=== PATIENT | male | born 1955 | race Caucasian/White ===

== ENCOUNTER → 2022-05-02 | Outpatient (CLI) | payer MEDICARE ==
--- NOTE | 2022-05-02 15:48 | US ---
EXAMINATION TYPE: US carotid duplex BILAT DATE OF EXAM: 05/02/2022 COMPARISON: NONE CLINICAL HISTORY: I65.23 OCCLUSION AND STENOSIS. No symptoms, assess for stenosis, no h/o stroke TECHNIQUE: Carotid duplex ultrasound examination. Indirect Doppler criteria was utilized. FINDINGS: EXAM MEASUREMENTS: RIGHT: Peak Systolic Velocity (PSV) cm/sec ----- Right CCA: 121 ----- Right ICA: 86.8 ----- Right ECA: 127 ICA/CCA ratio: 0.7 RIGHT: End Diastole cm/sec ----- Right CCA: 21.5 ----- Right ICA: 24.9 ----- Right ECA: 13.5 LEFT: Peak Systolic Velocity (PSV) cm/sec ----- Left CCA: 84.3 ----- Left ICA: 80.6 ----- Left ECA: 163 ICA/CCA ratio: 0.9 LEFT: End Diastole cm/sec ----- Left CCA: 13.9 ----- Left ICA: 21.0 ----- Left ECA: 19.5 VERTEBRALS (direction of flow): Right Vertebral: Antegrade Left Vertebral: Antegrade Rhythm: Normal FORENSIC BALLISTICS EXPERT NOTES: Mild heterogeneous plaque at proximal left ICA, no significant stenosis IMPRESSION: Mild atherosclerotic plaque within the left proximal ICA. No evidence of hemodynamically significant stenosis within both internal carotid arteries. Criteria for Assigning % of Stenosis / Diameter reduction (Estimation based on the indirect measurements of the internal carotid artery velocities (ICA PSV). 1. Normal (no stenosis)=ICA PSV < 125 cm/s: ratio < 2.0: ICA EDV<40 cm/s. 2. Less than 50% stenosis=ICA PSV < 125 cm/s: ratio < 2.0: ICA EDV<40 cm/s. 3. 50 to 69% stenosis=ICA PSV of 125 to 230 cm/s: ration 2.0 ? 4.0: ICA EDV 40-100 cm/s. 4. Greater than 70% stenosis to near occlusion= ICA PSV > 230 cm/s: ratio > 4.0: ICA EDV > 100 cm/s. 5. Near occlusion= ICA PSV velocities may be low or undetectable: variable ratio and ICA EDV. 6. Total occlusion=unable to detect flow.
== END | disposition home or self-care (01) ==
LOC: RADUSWWP 14:45
PROVIDERS: ATTEND Internal Medicine
DX: Z13.6 Encounter for screening for cardiovascular disorders (principal); I65.22 Occlusion and stenosis of left carotid artery
CPT/HCPCS: 93880

== ENCOUNTER → 2023-08-15 | Outpatient (CLI) | payer MEDICARE ==
[~2023-08-15] MED LIST: REGADENOSON 0.4 MG/5 ML SYRINGE IV ONE
--- NOTE | 2023-08-15 10:26 | CA ---
Lexiscan Nuclear Stress Test Report Name: Anderson Boles Exam Date: 08/15/2023 09:33 Exam Location: [facility] Ht (in): 70 Wt (lb): 168 BSA: 1.94 Ordering Phys: Autumn Avila MD Referring Phys: Autumn Avila MD Technologist: BRAYDEN BELLA Age: 68 Gender: M : 1955 Procedure CPT: Indications: I25.10 arteriosclerosis ICD-10 Codes: Patient History: ELEVATED CHOLESTEROL LEVELS, ASTHMA Medications: ATORVASTATIN,,,,,, MARIN 81 mg,,,,, Meds past 24 hrs: Pretest Chest Pain: STRESS TEST Lexiscan Protocol Exercise Duration (min:sec): 01:[address] Depressions (mm): Angina Score: Belcher Score: Resting HR (bpm): 61 Peak HR (bpm): 92 Resting BP (mmHg): 149 / 72 Peak BP (mmHg): 149 / 72 MPHR: 150 Target HR: 128 % MPHR: 61 METS: 1.0 Total Dose: Peak Dose: Atropine: Double Product: 49660 BP Response: Stress Termination: INFUSION COMPLETE Stress Symptoms: NO SYMPTOMS Stress Summary: ECG ANALYSIS Resting ECG: Normal sinus rhythm, normal axis Stress ECG: No significant ST-T wave changes that are diagnostic for ischemia by ST segment analysis. There were no sustained arrhythmias ectopic beats during the stress test CONCLUSIONS Normal ECG response to Lexiscan infusion. Nonischemic Normal hemodynamic response to Lexiscan infusion Normal clinical response to Lexiscan infusion Please refer to the nuclear portion of the stress test for the complete interpretation of this study Dr Damián Lai (Electronically Signed) Final Date: 15 August 2023 10:26
--- NOTE | 2023-08-15 12:28 | NM ---
EXAMINATION TYPE: NM stress lexiscan cardiolite DATE OF EXAM: 08/15/2023 COMPARISON: NONE CLINICAL INDICATION: Male, 68 years old with history of I25.10 coronary arteriosclerosis; TECHNIQUE: After the intravenous administration of 9.9 mCi Tc 99m Sestamibi - Cardiolite resting SPE CT images acquired 45 minutes post injection. The patient received 0.4mg Lexiscan, 25.4 mCi Tc 99m Sestamibi - Stress images obtained [address] injection FINDINGS: Review of stress and rest SPECT images demonstrates no distinct perfusion abnormality. Gated analysi s shows normal wall motion with an estimated left ventricular ejection fraction of 59 %. IMPRESSION: No scintigraphic evidence for reversible ischemia.
== END | disposition home or self-care (01) ==
LOC: RADNMMAIN 07:36
PROVIDERS: ATTEND Internal Medicine
DX: I25.10 Atherosclerotic heart disease of native coronary artery without angina pectoris (principal); E78.00 Pure hypercholesterolemia, unspecified; J45.909 Unspecified asthma, uncomplicated
CPT/HCPCS: 93017; 78452; A9500; J2785

== ENCOUNTER → 2024-07-31 | Outpatient (CLI) | payer MEDICARE ==
--- NOTE | 2024-07-31 08:48 | CT ---
EXAMINATION TYPE: CT left knee - [facility] Protocol DATE OF EXAM: 07/31/2024 8:15 AM COMPARISON: 12/19/2013. CLINICAL INDICATION: Male, 69 years old with history of M21.162 OA KNEE M17.12 PRIMARY OSTO L KNEE M2 5.562; PHH, Presurgical planning left knee, pain, TECHNIQUE: Axial images were obtained of the bilateral hips, knee and bilateral ankles: CT left knee - [facility] Protocol, Additional coronal and sagittal reformatted images and soft tissue and bone window were obtained for review of the bilateral hips, knee and bilateral ankles. Contrast used: mL of , (None if empty) Oral contrast used: (None if empty) CT DLP: 576 mGycm, Automated exposure control for dose reduction was used. FINDINGS: The visualized portion of the hips demonstrate mild osteoarthrosis changes with osteophyte formation of the acetabulum. No acute intrapelvic process. The bony structures of the pelvis are intact. The visualized knee demonstrates osteophyte formation of the tibial plateau, the patella and femoral condyles. There is joint space narrowing and subchondral sclerosis. No evidence of fracture. Severe atherosclerosis of the arterial vasculature. Small joint effusion present. The visualized ankles demonstrates multifocal osteoarthrosis changes with osteophyte formation and mi ld joint space narrowing. No evidence of fractures. Bone island in the distal left tibia and talus. A ccessory ossicles present. Severe atherosclerosis of the arterial vasculature. Other: Bilateral fat-containing inguinal hernias. Large amount stool in the rectum. Others close of t he arterial vascular. IMPRESSION: End-stage osteoarthrosis changes of the knee. [facility], , 07/31/2024 8:45 AM
== END | disposition home or self-care (01) ==
LOC: RADCTMAIN 07:39
PROVIDERS: ATTEND Orthopaedic Surgery
DX: M17.12 Unilateral primary osteoarthritis, left knee (principal); M21.162 Varus deformity, not elsewhere classified, left knee

== ENCOUNTER → 2024-07-31 | Outpatient (CLI) | payer MEDICARE ==
[2024-07-31 09:22] LABS: Partial Thromboplastin Time 24.3 sec (22.0-30.0); Prothrombin Time 10.8 sec (10.0-12.5)
[2024-07-31 16:44] LABS: ALT 22 U/L (10-49); AST 18 U/L (14-35); Albumin 4.5 g/dL (3.8-4.9); Albumin/Globulin Ratio 2.14 Ratio (1.60-3.17); Alkaline Phosphatase 102 U/L (41-126); Blood Urea Nitrogen 16.8 mg/dL (9.0-27.0); Calcium 9.5 mg/dL (8.7-10.3); Carbon Dioxide 27.7 mmol/L (21.6-31.8); Chloride 104 mmol/L (96-109); Globulin 2.1 g/dL (1.6-3.3); Glucose 103 mg/dL (70-110); Potassium 4.8 mmol/L (3.5-5.5); Sodium 141 mmol/L (135-145); Total Bilirubin 0.7 mg/dL (0.3-1.2); Total Protein 6.6 g/dL (6.2-8.2)
[2024-07-31 17:20] LABS: HCT 46.3 % (39.6-50.0); HGB 15.5 g/dL (13.0-17.0); MCH 28.5 pg (27.0-32.0); MCHC 33.5 g/dL (32.0-37.0); MCV 85.3 FL (80.0-97.0); Mean Platelet Volume 11.7 FL (9.5-12.2); NRBC Per 100 WBC 0 X 10*3/uL (0.00-0.01); Platelet Count 191 X 10*3/uL (140-440); RBC 5.43 X 10*6/uL (4.40-5.60); RDW 13.1 % (11.5-14.5); WBC 7.84 X 10*3/uL (4.50-10.00)
== END | disposition home or self-care (01) ==
LOC: LABPAT 08:16
PROVIDERS: ATTEND Orthopaedic Surgery
DX: Z01.818 Encounter for other preprocedural examination (principal)
CPT/HCPCS: 80053; 83036; 85027; 85610; 85730; 87070; 93005

== ENCOUNTER 2024-08-16 11:37 | Day surgery (SDC) | payer MEDICARE ==
[~2024-08-16 11:37] MED LIST changes: +HYDROmorphone 0.5 MG/0.5 ML SYRINGE IVP PRN; -REGADENOSON 0.4 MG/5 ML SYRINGE IV ONE; +TRANEXAMIC 1,000 MG/100ML-NACL 1,000 MG in SALINE 1 100ML.BAG IV PRN; +TRANEXAMIC 1,000 MG/100ML-NACL 1,000 MG in SALINE 1 100ML.BAG IVPB PRN
[2024-08-16] MEDS: ONDANSETRON 4 MG/2 ML VIAL IVP PRN (13:49)
[2024-08-16] MEDS: KETOROLAC 15 MG/ML 1 ML VIAL IVP PRN (13:49)
[2024-08-16] MEDS: FAMOTIDINE 20 MG/2 ML VIAL IVP PRN (13:49)
[2024-08-16] MEDS: DEXAMETHASONE SOD PHOSPHATE 10 MG/ML 1 ML VIAL IV PRN (13:50)
[2024-08-16] MEDS: oxyCODONE ER 10 MG TAB.ER.12H PO PRN (13:50)
[2024-08-16] MEDS: LACTATED RINGERS 1,000 ML IV SCH (13:50)
[2024-08-16] MEDS: DOCUSATE 100 MG CAP PO PRN (13:50)
[2024-08-16] MEDS: ACETAMINOPHEN TAB 500 MG TAB PO PRN (13:50)
[2024-08-16] MEDS: MIDAZOLAM 2 MG/2 ML VIAL IV PRN (13:55)
[2024-08-16] MEDS: LACTATED RINGERS 1,000 ML IV ONE ×2 (14:03→17:17)
--- NOTE | 2024-08-16 14:05 | P.ANPRN ---
Procedure Note - Anesthesia - Nerve Block Performed Left Adductor Canal Single Time Out Performed: Yes (1355) Date of Procedure: 08/16/24 Procedure Start Time: 13:55 Procedure Stop Time: 14:05 Location of Patient: PreOp Indication: Acute Post-Operative Pain, Requested by Surgeon Sedation Type: Sedate with meaningful contact maintained Preparation: Sterile Prep, Sterile Dressing Position: Supine Catheter: None Needle Types: Pajunk Needle Gauge: 21 Ultrasound used to visualize needle placement: Yes Ultrasound used to observe medication spread: Yes Injectate: 0.5% Ropivacaine (see comment for volume) (21 mL of block solution containing 10 mL of 0.5% ropivacaine mixed with 10 mL of preservative-free normal saline, and 4 mg of dexamethasone) Blood Aspirated: No Pain Paresthesia on Injection Noted: No Resistance on Injection: Normal Image Stored and Saved: Yes Events: Uneventful and Well Tolerated
--- NOTE | 2024-08-16 14:06 | P.ANPRN ---
Procedure Note - Anesthesia - Nerve Block Performed Left iPack Single Time Out Performed: Yes (1355) Date of Procedure: 08/16/24 Procedure Start Time: 13:55 Procedure Stop Time: 14:05 Location of Patient: PreOp Indication: Acute Post-Operative Pain, Requested by Surgeon Sedation Type: Sedate with meaningful contact maintained Preparation: Sterile Prep, Sterile Dressing Position: Supine Catheter: None Needle Types: Pajunk Needle Gauge: 21 Ultrasound used to visualize needle placement: Yes Ultrasound used to observe medication spread: Yes Injectate: 0.5% Ropivacaine (see comment for volume) (21 mL of block solution containing 10 mL of 0.5% ropivacaine mixed with 10 mL of preservative-free normal saline, and 4 mg of dexamethasone) Blood Aspirated: No Pain Paresthesia on Injection Noted: No Resistance on Injection: Normal Image Stored and Saved: Yes Events: Uneventful and Well Tolerated
[2024-08-16] MEDS ORDERED: NEOSTIGMINE 1 MG/ML 10 ML VIAL ONE (16:40)
[2024-08-16] MEDS ORDERED: SODIUM CHLORIDE 0.9% (PF) 10 ML VIAL ONE (16:40)
[2024-08-16] MEDS ORDERED: TRANEXAMIC 1,000 MG/100ML-NACL PREMIX BAG ONE (16:40)
[2024-08-16] MEDS ORDERED: MIDAZOLAM 2 MG/2 ML VIAL ONE (16:40)
[2024-08-16] MEDS ORDERED: SUCCINYLCHOLINE CHLORIDE 200 MG/10 ML VIAL IV ONE (16:40)
[2024-08-16] MEDS ORDERED: PHENYLEPHRINE-0.9% NACL SYG 1,000 MCG/10 ML SYRINGE ONE (16:40)
[2024-08-16] MEDS ORDERED: ROPIVACAINE 5 MG/ML 30 ML VIAL ONE (16:40)
[2024-08-16] MEDS ORDERED: ROCURONIUM 10 MG/ML (5 ML VIAL) IV ONE (16:40)
[2024-08-16] MEDS ORDERED: PROPOFOL 10 MG/ML 20 ML VIAL IV ONE (16:40)
[2024-08-16] MEDS ORDERED: LIDOCAINE 1% INJ 10MG/ML (20 ML MDV) ONE (16:40)
[2024-08-16] MEDS ORDERED: DEXAMETHASONE SOD PHOSPHATE 4 MG/ML 1 ML VIAL ONE (16:40)
[2024-08-16] MEDS ORDERED: GLYCOPYRROLATE 0.2 MG/ML 2 ML VIAL ONE (16:40)
[2024-08-16] MEDS ORDERED: fentaNYL (PF) 50 MCG/ML 2 ML AMP ONE (16:40)
[2024-08-16] MEDS: ROPIVACAINE/EPI/CLONIDINE/KET 50 ML SYRINGE MISCELLANE PRN (17:13)
[2024-08-16] MEDS ORDERED: NALOXONE 0.4 MG/ML 1 ML VIAL IV PRN (19:04)
[2024-08-16] MEDS ORDERED: HYDROmorphone 0.5 MG/0.5 ML SYRINGE IVP PRN ×3 (19:04)
[2024-08-16] MEDS ORDERED: hydrOXYzine pamoate 25 MG CAP PO PRN (19:04)
--- NOTE | 2024-08-16 19:45 | XR ---
EXAMINATION TYPE: XR knee limited LT DATE OF EXAM: 08/16/2024 7:30 PM COMPARISON: None CLINICAL INDICATION: Male, 69 years old with history of Evaluation for Postop abnormality and alignme nt; PHH, pain TECHNIQUE: XR knee limited LT 2 views submitted. FINDINGS: Status post total knee arthroplasty changes with hardware in appropriate alignment and in tact. No evidence of fracture. Subcutaneous lucencies and lucencies within the joint consistent with surgical changes. IMPRESSION: Status post total knee arthroplasty changes with hardware intact and appropriate alignment. No fractu res identified. [facility], , 08/16/2024 7:43 PM
[2024-08-16] MEDS: ASPIRIN 81 MG PO SCH (21:15)
[2024-08-16] MEDS: HYDROcodone/APAP 10-325MG 1 EACH TAB PO PRN (21:15)
[2024-08-16] MEDS: SODIUM CHLORIDE 0.9% 1,000 ML IV SCH (21:16)
[2024-08-16] MEDS: SENNOSIDES-DOCUSATE SODIUM 1 EACH TAB PO SCH (21:16)
--- NOTE | 2024-08-16 21:20 | P.OP ---
Date of Procedure: 08/16/24 Preoperative Diagnosis: Severe left knee arthritis Postoperative Diagnosis: Same Procedure(s) Performed: 1. Left total knee arthroplasty 2. Computer assisted musculoskeletal navigation using CT/MRI images Implants: 1. Lidya Triathlon CR/PS Femur Size # 2. Wiley Triathlon [place] Tibial Base Size # 3. Lidya Triathlon CS/PS poly Size # 4. Wiley Triathlon all poly patella, Size # Anesthesia: GETA, regional Surgeon: Renny Roy Rehabilitation Program Manager #1: Dhiraj Wood Estimated Blood Loss (ml): 100 IV fluids (ml): 800 Pathology: none sent Condition: stable Disposition: PACU Indications for Procedure: I met with the patient preoperatively in the office setting and discussed treatment of their symptomatic knee arthritis. They failed a long course of nonsurgical treatment and elected to proceed with an elective total knee replacement. I discussed the potential risks and complications at length and gave them ample time to ask questions. Risks discussed included: risks from anesthesia, superficial site surgical infection, acute and/or chronic periprosthetic joint infection, delayed wound healing, drainage, wound necrosis, instability, stiffness, stiffness requiring manipulation and/or revision surgery, damage to local blood vessels or nerves, aseptic loosening of the implants, extensor mechanism issues including disruption, patellar maltracking, avascular necrosis etc., continued or worsened knee pain, generalized dissatisfaction with surgical outcome, need for revision surgery, an inability to regain preinjury level of function, DVT, PE, other medical complications, and possibly loss of life or limb. The patient voiced their understanding that while these are the most common complications other less common complications are possible. They provided both their verbal and written consent to go forward with surgery. Operative Findings: Severe tricompartmental knee osteoarthritis with severe varus deformity that was only partially passively correctable. The varus deformity measured 17.5 degrees after registration with the [employer] robot. The knee was balanced with varus in the tibia and distal femur, rotation of the femoral implant, complete posteromedial release and a "reduction osteotomy" of the tibia. The was well-balanced with a CS poly. Description of Procedure: The patient was identified in preoperative holding and the correct operative extremity was verified and marked with a marker. I reviewed the consent form with the patient at length. All of their questions were answered. The patient was given a block by anesthesia. They were then brought back to the operating room. They were transferred onto the operating room table where a general anesthetic, preoperative antibiotics, and tranexamic acid were administered by anesthesia. A tourniquet was applied to the proximal aspect of the operative extremity. The contralateral extremity was padded under the heel and secured to the operating room table with a nonsterile blue towel and tape. The ipsilateral arm was carefully draped across the patient's chest and secured with a pillow and foam. A post was applied over the lateral aspect of the ipsilateral thigh and a bolster was placed under the ipsilateral foot. I verified that the operative extremity was stable and the knee was flexed to 90. The operative extremity was then placed in a leg pastor, nonsterile drapes were applied, and the extremity was prepped and draped sterilely in the standard sterile fashion. Prior to starting surgery timeout was performed identifying the correct patient, operative extremity, and procedure. The leg was then elevated, exsanguinated with an Esmarch bandage, and the tourniquet was inflated. An anterior midline incision was made sharply with a scalpel. Once I had dissected deep to the superficial fascial layer medial and lateral flaps were elevated. A medial parapatellar arthrotomy was created. Upon opening the knee joint there were diffuse arthritic changes in all 3 compartments. The anterior horn of the medial meniscus were sharply released and a medial release was performed around the posterior medial corner of the knee to facilitate retractor placement. The fat pad was excised with electrocautery. The patella was found to be severely arthritic and a provisional cut was made with a sagittal saw to facilitate mobilization of the extensor mechanism during the procedure. Remnants of the ACL and PCL were then excised from the notch. 4 mm pins were then placed within the incision in the medial distal femur and proximal tibia. Arrays were applied to the pins and I verified they were completely tightened. The knee was then registered with the [employer] robot and manipulations in implant position were made to balance the knee and opitmize implant position. Using the [employer] robotic saw all cuts were made in accordance with our plan. After all bony fragments had been removed the cuts were verified with the planar probe. The tibia was then subluxed forward and sized. The knee was brought into flexion and a lamina food service clerk was placed to allow removal of the meniscal remnants both medially and laterally as well as posterior osteophytes. Local anesthetic was then infiltrated around the joint capsule. Trial implants were then placed within the knee. Range of motion and collateral ligament tension was then evaluated. Adjustments in implant size and position were then made accordingly. Once the knee was felt to be appropriately balanced the Anatoliy pins were removed. The patella was then recut, sized, and punched. A trial patellar button was then placed. With the trial components in place, the patella tracked midline. The femur was then drilled and the trial component removed. The trial tibial component was then appropriately rotated, pinned, and prepared for the keel. All trial components were then removed from the knee. The knee was thoroughly irrigated with pulsatile lavage. Cement was prepared via vacuum mixing in a bowl on the back table. I then hand pressurized cement into the femur and tibia and placed the implants beginning with the tibial base tray and poly liner, femoral component, and finally the patellar button. All extruded cement was removed including from the pin sites. Once the cement had hardened the knee was evaluated one final time with the final polyethylene liner in place. The knee had full extension and flexion and felt stable to varus and valgus stress throughout the arc of motion. The tourniquet was released and with the tourniquet down the patella tracked midline. All bleeders were controlled with electrocautery. The knee was then soaked for 3 minutes with a dilute Betadine soak. The knee was thoroughly irrigated using 3 L of sterile saline and puls atile lavage. A deep drain was placed. The extensor mechanism was then reapproximated using pop off Vicryl sutures followed by a running barbed suture. The knee was then closed in layers with a 0 strata fix for the deep fascial layer, 2-0 strata fix for the superficial subcutaneous layer and Monocryl and Steri-Strips for the skin. A sterile dressing and drain sponge were applied. I verified that all instrument, sponge, and sharp counts were correct. The patient was then transferred off the operating room table, extubated, and brought to recovery having tolerated the procedure well. Dhiraj Wood PA-C was required as a skilled general office assistant due to the complexity of surgery for patient positioning, draping, exposure, retraction, closure of wound and application of dressing. PLAN: The patient can weight-bear as tolerated on the operative extremity. DVT prophylaxis with aspirin 81 mg twice a day based on preoperative risk stratification. Follow-up in the office in 2 weeks for wound check and x-rays of the knee including an AP and lateral.
[2024-08-17 02:03] VITALS: TEMP 98.5
[2024-08-17 07:49] VITALS: BP 124/64; PULSE 67; RESP 18
--- NOTE | 2024-08-17 08:12 | P.DS ---
Providers Date of admission: August 16, 2024 Attending physician: Renny Roy Consults: 08/16/24 19:04 Consult Physician Routine Consulting Provider: Autumn Avila Consult Reason/Comments: Postop medical management Do you want consulting provider notified?: Yes Primary care physician: Autumn Avila Hospital Course: The patient is a very pleasant 69-year-old male who was admitted yesterday and underwent an uncomplicated left total knee replacement. Following surgery he was transferred to the orthopedic floor. He received 2 doses of postoperative antibiotics. I saw the patient on postoperative day #1 and he was doing well. His dressing was intact. Femoral nerve function was intact. He was able to actively plantarflex and dorsiflex his ankle and his toes. Physical therapy was consulted. Internal medicine has been consulted for perioperative medical management, awaiting evaluation. The patient did well and was ultimately cleared for discharge home. Patient Condition at Discharge: Good Plan - Discharge Summary Discharge Rx Participant: No New Discharge Prescriptions: New Sennosides-Docusate Sodium [Senokot-S] 1 tab PO BID PRN #60 tablet PRN Reason: Constipation Aspirin 81 mg PO BID #60 tab Omeprazole 20 mg PO DAILY #30 tab Ondansetron [Zofran] 4 mg PO Q6HR PRN #30 tab PRN Reason: Nausea HYDROcodone/APAP 5-325MG [Banning 5-325] 1 - 2 tab PO Q6HR PRN #56 tab PRN Reason: Pain No Action Aspirin [Adult Low Dose Aspirin EC] 81 mg PO DAILY Atorvastatin [Lipitor] 40 mg PO DAILY Discharge Medication List Aspirin [Adult Low Dose Aspirin EC] 81 mg PO DAILY 08/12/24 [History] Atorvastatin [Lipitor] 40 mg PO DAILY 08/12/24 [History] Aspirin 81 mg PO BID #60 tab 08/16/24 [Rx] Omeprazole 20 mg PO DAILY #30 tab 08/16/24 [Rx] Ondansetron [Zofran] 4 mg PO Q6HR PRN #30 tab 08/16/24 [Rx] Sennosides-Docusate Sodium [Senokot-S] 1 tab PO BID PRN #60 tablet 08/16/24 [Rx] HYDROcodone/APAP 5-325MG [Banning 5-325] 1 - 2 tab PO Q6HR PRN #56 tab 08/17/24 [Rx] Follow up Appointment(s)/Referral(s): Renny Roy MD [Medical Doctor] - 2 Weeks Activity/Diet/Wound Care/Special Instructions: 1. Weight-bear as tolerated on your operative extremity unless instructed otherwise. Use a walker or other assistive device to ambulate. 2. Leave surgical dressing in place. If your dressing becomes saturated with blood, there is drainage, or the dressing becomes loose please contact the office. 3. It is okay to shower with your surgical dressing, but do not submerge in water (no hot tubs, bath's, swimming etc.) 4. Take your blood clot prevention medication as prescribed (aspirin, Eliquis, Xarelto, and Plavix are commonly prescribed medications for blood clot prevention) 5. While taking Banning or Percocet for pain take a stool softener (Ex: Colace) and drink lots of water. 6. Keep all follow-up appointments as scheduled. You will usually be seen in 1-2 weeks following surgery. 7. Please contact the office with any questions or concerns [phone] Discharge Disposition: HOME WITH HOME HEALTH SERVICES
[2024-08-17] MEDS: HYDROcodone/APAP 5-325MG 1 EACH TAB PO PRN (08:25)
[2024-08-17] MEDS: ATORVASTATIN 40 MG TAB PO SCH (11:16)
--- NOTE | 2024-08-17 13:02 | P.CONS ---
History of Present Illness - Reason for Consult Consult date: 08/17/24 Medical management Requesting physician: Renny Roy - Chief Complaint Status post left total knee arthroplasty - History of Present Illness HISTORY OF PRESENT ILLNESS: This is a 69-year-old male with a previous medical history significant for hyperlipidemia, history of severe osteoarthritis in both knees left worse than right, allergic rhinitis, patient was seen by Dr. Roy and he recommended for the patient to go for left total knee arthroplasty that was done successfully yesterday, I was asked to see the patient for postoperative medical management, patient is sitting up in bed in no apparent distress, his pain is controlled at this time, he is using incentive spirometer, he is ambulating using a walker, he is getting ready to be discharged home later on today, he is not having any chest pain, shortness of breath, he has been able to urinate, no other issues, he did have a bowel movement as well, patient will be discharged home today and follow-up with us as an outpatient. REVIEW OF SYSTEMS: Constitutional: No documented fever, no chills, no night sweats. No weight change. No weakness, fatigue or lethargy. No daytime sleepiness. EENT: No headache. No blurred vision or double vision, no loss of vision. No loss of Hearing, no ringing in the ears, no dizziness. No nasal drainage or congestion. No epistaxis. No sore throat. Lungs: No shortness of breath, no cough, no sputum production. No wheezing. Reports dyspnea with activity. Cardiovascular: No chest pain, no lower extremity edema. No palpitations. No paroxysmal nocturnal dyspnea. No orthopnea. No lightheadedness or dizziness. No syncopal episodes. Abdominal: Reports no abdominal pain. No nausea, vomiting. No diarrhea. No constipation. No bloody or tarry stools reports loss of appetite. Genitourinary: No dysuria, increased frequency, urgency. No urinary retention. Musculoskeletal: No myalgias. No muscle weakness, no gait dysfunction, no freq uent falls. No back pain. No neck pain. Integumentary: left knee wound with dressing intact, no lesions. No rash or pruritus. No unusual bruising. No change in hair or nails. Neurologic: No aphasia. No facial droop. No change in mentation. No head injury. No headache. No paralysis. No paresthesia. Psychiatric: No depression. No anxiety. No mood swings. Endocrine: No abnormal blood sugars. No weight change. PAST MEDICAL HISTORY: Mixed hyperlipidemia. Osteoarthritis. Allergic rhinitis. Enlarged prostate. PAST SURGICAL HISTORY: Temporary pin placed in the right hand 2012 Tonsillectomy and adenoidectomy. SOCIAL HISTORY: Patient is a lifelong non-smoker, he denies any alcohol ingestion, he denies any drug use or abuse. He lives alone. FAMILY HISTORY: Father at age of 84 from pancreatic cancer and also had history of of coronary artery disease, mother at age of 93 from stroke, patient has a sister 76-year-old who fell last year and broke her hip. PHYSICAL EXAMINATION: General: 69-year-old male laying down in bed in no apparent distress. HEENT: Head is atraumatic, normocephalic, pupils were equal round reactive to light and recommendation, extraocular muscle movement were intact, sclera nonicteric, conjunctivae were pale, mucous membranes of the mouth are somewhat dry. Neck: Supple, no JVP, normal carotid upstroke bilaterally, no lymphadenopathy. Chest: Decreased breath sounds at the bases, few rhonchi, no expiratory wheezes, no chest wall tenderness, no intercostal retractions. Heart: First heart sound is normal, second heart sounds normal there is no gallop or murmur no rubs or heaves. Abdomen: Soft, nontender, nondistended, positive bowel sounds. Extremities: There is no edema no calf tenderness DP +2 bilaterally, left knee dressing appears to be intact. Neurologic examination: Patient is awake alert and oriented x3, cranial nerves II-12 appear grossly intact, muscle power were 5 out of 5 in upper extremities and 5 out of 5 in bilateral lower extremities, deep tendon reflexes normal bilaterally. ASSESSMENT AND PLAN: 1. Postoperative day #1 status post left total knee arthroplasty. The patient was instructed to continue the usage of incentive spirometer to reduce the incidence of atelectasis and healthcare associated pneumonia, continue aspirin 81 mg orally twice every day, early ambulation, continue current stool softener, continue current pain management as outlined by orthopedic surgery, increase activity, follow-up with us as an outpatient in the next 2 weeks. 2. Mixed hyperlipidemia. Continue patient on atorvastatin 40 mg orally once every day, monitor lipid panel, keep LDL 55-70. 3. Severe osteoarthritis status post left total knee arthroplasty stable at this time continue current pain management. 4. Enlarged prostate without evidence of any urinary retention. The patient did void and he will continue to do that. Increase oral intake of fluid. 5. Allergic rhinitis. Avoid allergens continue [id number] Zyrtec 10 mg once every day as needed. 6. Constipation. Continue current bowel care patient was instructed by drinking at least 65 ounces of water on daily basis, increase fiber in the diet, continue stool softener as well as MiraLAX on a daily basis. 7. DVT prophylaxis. Continue with bilateral knee-high JA hose, continue patient on aspirin 81 mg orally twice every day 8. GI prophylaxis not needed. 9. Thank you Dr. Roy for allowing me to participate in the care of your patient patient is medically stable to be discharged home today. Past Medical History Past Medical History: Asthma, Hyperlipidemia Additional Past Medical History / Comment(s): no problems with asthma now- no inhalers History of Any Multi-Drug Resistant Organisms: None Reported Past Surgical History: Adenoidectomy, Orthopedic Surgery, Tonsillectomy Additional Past Surgical History / Comment(s): right hand surg 2012 Past Anesthesia/Blood Transfusion Reactions: No Reported Reaction Past Psychological History: No Psychological Hx Reported Smoking Status: Never smoker Past Alcohol Use History: None Reported Past Drug Use History: None Reported - Past Family History Father Family Medical History: Diabetes Mellitus Sister(s) Family Medical History: Cancer Additional Family Medical History / Comment(s): non-hodgkins lymphoma Medications and Allergies Home Medications Medication Instructions Recorded Confirmed Type Aspirin [Adult Low Dose Aspirin EC] 81 mg PO DAILY 08/12/24 08/12/24 History Atorvastatin [Lipitor] 40 mg PO DAILY 08/12/24 08/16/24 History Aspirin 81 mg PO BID #60 tab 08/16/24 Rx Omeprazole 20 mg PO DAILY #30 tab 08/16/24 Rx Ondansetron [Zofran] 4 mg PO Q6HR PRN #30 tab 08/16/24 Rx Sennosides-Docusate Sodium 1 tab PO BID PRN #60 tablet 08/16/24 Rx [Senokot-S] HYDROcodone/APAP 5-325MG [[place] 1 - 2 tab PO Q6HR PRN #56 tab 08/17/24 Rx 5-325] Allergies Allergy/AdvReac Type Severity Reaction Status Date / Time No Known Allergies Allergy Verified 08/16/24 13:30 Physical Exam Vitals: Vital Signs Temp Pulse Resp BP Pulse Ox 08/17/24 07:24 98.5 F 67 18 124/64 95 08/17/24 02:00 98.5 F 110 H 21 146/79 96 08/16/24 21:45 73 18 145/78 100 08/16/24 21:30 94 18 154/83 100 08/16/24 21:15 82 18 162/73 98 08/16/24 21:00 98.2 F 83 17 165/85 96 08/16/24 20:30 73 16 149/74 97 08/16/24 20:15 79 16 148/71 98 08/16/24 20:00 76 16 154/73 98 08/16/24 19:45 71 16 162/73 98 08/16/24 19:30 82 16 165/74 100 08/16/24 19:15 83 16 157/72 100 08/16/24 19:00 97.2 F L 84 14 144/66 95 08/16/24 14:38 62 17 140/74 100 08/16/24 14:07 61 16 141/71 100 08/16/24 13:33 97.3 F L 68 16 140/71 98 Intake and Output 08/16/24 08/17/24 08/17/24 22:59 06:59 14:59 Intake Total 1300 Output Total 100 Balance 1200 Intake: IV 1300 Output: Estimated Blood Loss 100 Other: Voiding Method Urinal Toilet Weight 75.4 kg
[2024-08-17 17:13] LABS: Basophils # (A) 0.03 X 10*3/uL (0.00-0.10); Basophils % (A) 0.1 %; Eosinophils # (A) 0 X 10*3/uL (0.04-0.35); Eosinophils % (A) 0 %; HCT 43.3 % (39.6-50.0); HGB 13.9 g/dL (13.0-17.0); Lymphocytes # (A) 0.51 X 10*3/uL (0.90-5.00); Lymphocytes % (A) 2.5 %; MCH 28.7 pg (27.0-32.0); MCHC 32.1 g/dL (32.0-37.0); MCV 89.5 FL (80.0-97.0); Mean Platelet Volume 11.6 FL (9.5-12.2); Monocytes # (A) 1.21 X 10*3/uL (0.20-1.00); Monocytes % (A) 5.9 %; NRBC Per 100 WBC 0 X 10*3/uL (0.00-0.01); Neutrophils # (A) 18.55 X 10*3/uL (1.80-7.70); Neutrophils % (A) 90.9 %; Platelet Count 177 X 10*3/uL (140-440); RBC 4.84 X 10*6/uL (4.40-5.60); RDW 12.9 % (11.5-14.5); WBC 20.43 X 10*3/uL (4.50-10.00)
== END 2024-08-17 11:44 | disposition home health service (06) ==
LOC: OR 11:37 → 4SSUR 19:00 → OR 08-17 11:44
PROVIDERS: ATTEND Orthopaedic Surgery
DX: M17.0 Bilateral primary osteoarthritis of knee (principal); M21.162 Varus deformity, not elsewhere classified, left knee; G89.18 Other acute postprocedural pain; E78.2 Mixed hyperlipidemia; N40.0 Benign prostatic hyperplasia without lower urinary tract symptoms; J45.20 Mild intermittent asthma, uncomplicated; K59.00 Constipation, unspecified; R35.0 Frequency of micturition; Z79.82 Long term (current) use of aspirin; Z79.899 Other long term (current) drug therapy
CPT/HCPCS: 0055T; 27447; S2900; 64447; 64999; 85025

== ENCOUNTER 2024-08-18 17:08 | Emergency (ER) | payer MEDICARE ==
[2024-08-18 17:14] VITALS: RESP 16
--- NOTE | 2024-08-18 17:50 | ED ---
Extremity Problem HPI - General Chief complaint: Extremity Problem,Nontraumatic Stated complaint: poost op knee swelling L Time Seen by Provider: 08/18/24 17:23 Source: patient Mode of arrival: ambulatory Limitations: no limitations - History of Present Illness Initial comments: 69-year-old male presenting with chief complaint of left leg swelling. Patient had a knee replacement 2 days ago here at our facility with Dr. Roy. States that yesterday he noticed he had a lot of increased swelling to the area. States that his calf feels very firm and this is causing him quite a bit of discomfort. States that his knee is minimally painful, this has been consistent with his routine postop pain. Neck pain is controlled well with [place] 5. He is having no chest pain or difficulty breathing. No history of blood clots. No blood thinners. - Related Data Home Medications Medication Instructions Recorded Confirmed Aspirin [Adult Low Dose Aspirin EC] 81 mg PO DAILY 08/12/24 08/12/24 Atorvastatin [Lipitor] 40 mg PO DAILY 08/12/24 08/16/24 Previous Rx's Medication Instructions Recorded Aspirin 81 mg PO BID #60 tab 08/16/24 Omeprazole 20 mg PO DAILY #30 tab 08/16/24 Ondansetron [Zofran] 4 mg PO Q6HR PRN #30 tab 08/16/24 Sennosides-Docusate Sodium 1 tab PO BID PRN #60 tablet 08/16/24 [Senokot-S] HYDROcodone/APAP 5-325MG [[place] 1 - 2 tab PO Q6HR PRN #56 tab 08/17/24 5-325] Allergies Allergy/AdvReac Type Severity Reaction Status Date / Time No Known Allergies Allergy Verified 08/18/24 17:14 Review of Systems ROS Statement: Those systems with pertinent positive or pertinent negative responses have been documented in the HPI. ROS Other: All systems not noted in ROS Statement are negative. Past Medical History Smoking Status: Never smoker Past Alcohol Use History: None Reported Past Drug Use History: None Reported General Exam Limitations: no limitations General appearance: alert, in no apparent distress Head exam: Present: atraumatic, normocephalic, normal inspection Eye exam: Present: normal appearance, EOMI Neck exam: Present: normal inspection. Absent: meningismus Respiratory exam: Absent: respiratory distress Cardiovascular Exam: Present: regular rate Left Lower Leg exam: Present: tenderness, swelling. Absent: full ROM, erythema Neurovascular tendon exam: Present: no vascular compromise Neurological exam: Present: alert, oriented X3 Psychiatric exam: Present: normal affect, normal mood Skin exam: Present: warm, dry, normal color Course Vital Signs 08/18/24 08/18/24 17:12 19:24 Temperature 98.3 F 98.1 F Pulse Rate 84 72 Respiratory 16 16 Rate Blood Pressure 153/70 132/69 O2 Sat by Pulse 93 L 98 Oximetry Medical Decision Making - Medical Decision Making Was pt. sent in by a medical professional or institution (, PA, [facility], urgent care, hospital, or longterm...) When possible be specific @ -No Did you speak to anyone other than the patient for history (EMS, parent, family, police, friend...)? What history was obtained from this source @ -No Did you review nursing and triage notes (agree or disagree)? Why? @ -I reviewed and agree with nursing and triage notes Were old charts reviewed (outside hosp., previous admission, EMS record, old EKG, old radiological studies, urgent care reports/EKG's, longterm records)? Report findings @ -No old charts were reviewed Differential Diagnosis (chest pain, altered mental status, abdominal pain women, abdominal pain men, vaginal bleeding, weakness, fever, dyspnea, syncope, headache, dizziness, GI bleed, back pain, seizure, CVA, palpatations, mental health, musculoskeletal)? @ -Differential Musculoskeletal Muscular strain, contusion, ligament sprain, fracture, arthritis, septic arthritis, bursitis, cellulitis, muscle spasm, nerve compression, DVT, arterial occlusion, herpes zoster, electrolyte abnormality, tumor.... This is not meant to be in all inclusive list EKG interpreted by me (3pts min.). @ -As above X-rays interpreted by me (1pt min.). @ -None done CT interpreted by me (1pt min.). @ -None done U/S interpreted by me (1pt. min.). @ -Ultrasound negative for DVT What testing was considered but not performed or refused? (CT, X-rays, U/S, labs)? Why? @ -None What meds were considered but not given or refused? Why? @ -None Did you discuss the management of the patient with other professionals (professionals i.e. , PA, [facility], lab, RT, psych nurse, social media community manager, teaching assistant, teacher, sea air land officer, manager case management)? Give summary @ -No Was smoking cessation discussed for >3mins.? @ -No Was critical care preformed (if so, how long)? @ -No Were there social determinants of health that impacted care today? How? (Homelessness, low income, unemployed, alcoholism, drug addiction, transportation, low edu. Level, literacy, decrease access to med. care, usp, rehab)? @ -No Was there de-escalation of care discussed even if they declined (Discuss DNR or withdrawal of care, Hospice)? DNR status @ -No What co-morbidities impacted this encounter? (DM, HTN, Smoking, COPD, CAD, Cancer, CVA, ARF, Chemo, Hep., AIDS, mental health diagnosis, sleep apnea, morbid obesity)? @ -None Was patient admitted / discharged? Hospital course, mention meds given and route, prescriptions, significant lab abnormalities, going to OR and other pertinent info. @ -69-year-old male presenting chief complaint of increased swelling to his left lower leg. Patient had a knee replacement with Dr. Roy on Monday. Concern for DVT. No chest pain or difficulty breathing. Patient is neurovascularly intact. No signs of infection, there is no erythema or excessive joint swelling. Ultrasound negative for DVT. Patient's pain is well- controlled at this time. He is educated on today's findings and supportive management at home. Follow-up with surgeon. Follow-up with PCP. Report back to ER with any new or worsening symptoms. Discussed return parameters and answered all questions. Patient conveyed verbal understanding and agreed to the plan. I discussed this case in detail with my attending Dr. Saenz Undiagnosed new problem with uncertain prognosis? @ -No Drug Therapy requiring intensive monitoring for toxicity (Heparin, Nitro, Insulin, Cardizem)? @ -No Were any procedures done? @ -No Diagnosis/symptom? @ -Postoperative swelling Acute, or Chronic, or Acute on Chronic? @ -Acute Uncomplicated (without systemic symptoms) or Complicated (systemic symptoms)? @ -Uncomplicated Side effects of treatment? @ -No Exacerbation, Progression, or Severe Exacerbation? @ -No Poses a threat to life or bodily function? How? (Chest pain, [place], [place], pneumonia, PE, COPD, DKA, ARF, appy, cholecystitis, CVA, Diverticulitis, Homicidal, Suicidal, threat to staff... and all critical care pts) @ -No Disposition Clinical Impression: Leg swelling Disposition: HOME SELF-CARE Condition: Good Instructions (If sedation given, give patient instructions): Leg Edema (ED) Additional Instructions: Follow-up with your surgeon. Report back to ER with any new or worsening symptoms. Is patient prescribed a controlled substance at d/c from ED?: No Referrals: Autumn Avila MD [Primary Care Provider] - 1-2 days Renny Roy MD [Medical Doctor] - 1-2 days Time of Disposition: 19:17
--- NOTE | 2024-08-18 18:24 | US ---
EXAMINATION TYPE: US venous doppler duplex LE LT DATE OF EXAM: 08/18/2024 6:14 PM COMPARISON: NONE CLINICAL INDICATION: Male, 69 years old with history of swelling, 2 days post-op; S/P left total knee 2 days ago, swelling and pain, Pain TECHNIQUE: The lower extremity deep venous system is examined utilizing real time linear array sonog lia with graded compression, color doppler sonography, and spectral doppler. SIDE PERFORMED: Left FINDINGS: VESSELS IMAGED: Common Femoral Vein Deep Femoral Vein Greater Saphenous Vein * Femoral Vein Popliteal Vein Small Saphenous Vein * Proximal Calf Veins (* superficial vessels) Left Leg: Negative for DVT, Color Doppler imaging shows patency of the vessels. Spectral waveforms a re within normal limits. IMPRESSION: No ultrasound evidence for deep venous thrombosis. [facility], , 08/18/2024 6:22 PM
[2024-08-18] MEDS: HYDROcodone/APAP 5-325MG 1 EACH TAB PO STA (18:57)
[2024-08-18 19:36] VITALS: BP 132/69; PULSE 72; TEMP 98.1
== END 2024-08-18 19:35 | disposition home or self-care (01) ==
LOC: EC 17:08
DX: L76.82 Other postprocedural complications of skin and subcutaneous tissue (principal)
CPT/HCPCS: 99284

== ENCOUNTER → 2025-01-15 | Outpatient (CLI) | payer MEDICARE ==
--- NOTE | 2025-01-15 13:22 | US ---
EXAMINATION TYPE: US carotid duplex BILAT DATE OF EXAM: 01/15/2025 COMPARISON: US 2021 CLINICAL INDICATION: Male, 70 years old with history of I25.10 ATHSCL HEART DISEASE I65.[address] ENOSI; Hyperlipidemia. Additional History: .... TECHNIQUE: Grayscale, color Doppler and spectral Doppler evaluation of the bilateral carotid systems and vertebral arteries. Indirect Doppler criteria was utilized. FINDINGS: EXAM MEASUREMENTS: RIGHT: Peak Systolic Velocity (PSV) cm/sec ----- Right CCA: 120 ----- Right ICA: 100 ----- Right ECA: 124 ICA/CCA ratio: 0.83 RIGHT: End Diastole cm/sec ----- Right CCA: 23.2 ----- Right ICA: 26.2 ----- Right ECA: 15.7 LEFT: Peak Systolic Velocity (PSV) cm/sec ----- Left CCA: 124 ----- Left ICA: 95.0 ----- Left ECA: 120 ICA/CCA ratio: 0.77 LEFT: End Diastole cm/sec ----- Left CCA: 20.8 ----- Left ICA: 22.6 ----- Left ECA: 12.1 VERTEBRALS (direction of flow): Right Vertebral: Antegrade Left Vertebral: Antegrade Rhythm: Normal PHOTOGRAMMETRIC TECH NOTES: Slightly elevated velocity right mid CCA. Color Doppler imaging shows patency with blood flow throughout the carotid artery. IMPRESSION: No evidence of hemodynamically significant stenosis. Criteria for Assigning % of Stenosis / Diameter reduction (Estimation based on the indirect measurements of the internal carotid artery velocities (ICA PSV). 1. Normal (no stenosis)=ICA PSV < 180 cm/s: ratio < 2.0: ICA EDV<40 cm/s. 2. Less than 50% stenosis=ICA PSV < 180 cm/s: ratio < 2.0: ICA EDV<40 cm/s. 3. 50 to 69% stenosis=ICA PSV of 180 to 230 cm/s: ration 2.0 ? 4.0: ICA EDV 40-100 cm/s. PSV 125-180 cm/sec and ICA/CCA PSV Ratio ? 2.0 is also consistent with 50-69% stenosis 4. Greater than 70% stenosis to near occlusion= ICA PSV > 230 cm/s: ratio > 4.0: ICA EDV > 100 cm/s. 5. Near occlusion= ICA PSV velocities may be low or undetectable: variable ratio and ICA EDV. 6. Total occlusion=unable to detect flow. [facility], , 01/15/2025 1:19 PM
--- NOTE | 2025-01-16 07:45 | CA ---
Transthoracic Echo Report Name: Anderson Boles Age: 70 Gender: M : 1955 Exam Date: 01/15/2025 13:35 Exam Location: [facility] Ht (in): 68 Wt (lb): 165 Ordering Physician: Autumn Avila MD Attending/Referring Phys: Director Community Organization Dayna Monge RDCS Procedure CPT: Indications: I25.10 arteriosclerosis Cardiac Hx: Technical Quality: Good Contrast 1: Total Dose (mL): Contrast 2: Total Dose (mL): MEASUREMENTS (Male / Female) Normal Values 2D ECHO LV Diastolic Diameter PLAX 4.5 cm 4.2 - 5.9 / 3.9 - 5.3 cm LV Systolic Diameter PLAX 3.2 cm IVS Diastolic Thickness 1.0 cm 0.6 - 1.0 / 0.6 - 0.9 cm LVPW Diastolic Thickness 1.2 cm 0.6 - 1.0 / 0.6 - 0.9 cm LV Relative Wall Thickness 0.5 RV Internal Dim ED PLAX 3.4 cm LA Systolic Diameter LX 3.9 cm 3.0 - 4.0 / 2.7 - 3.8 cm LV Diastolic Volume MOD 4C 79.8 cm??? LV Systolic Volume MOD 4C 35.5 cm??? LV Ejection Fraction MOD 4C 55.5 % LV Cardiac Index MOD 4C 1372.5 cm???/min???m??? LV Diastolic Length 4C 8.4 cm LV Systolic Length 4C 6.9 cm LV Diastolic Volume MOD 2C 88.9 cm??? LV Systolic Volume MOD 2C 38.8 cm??? LV Ejection Fraction MOD 2C 56.4 % LV Cardiac Index MOD 2C 1552.1 cm???/min???m??? LV Diastolic Length 2C 8.5 cm LV Systolic Length 2C 6.7 cm M-MODE Aortic Root Diameter MM 2.9 cm AV Cusp Separation MM 2.3 cm DOPPLER AV Peak Velocity 115.4 cm/s AV Peak Gradient 5.3 mmHg AV Mean Velocity 76.7 cm/s AV Mean Gradient 2.6 mmHg AV Velocity Time Integral 26.9 cm Mitral E Point Velocity 90.2 cm/s Mitral A Point Velocity 75.6 cm/s Mitral E to A Ratio 1.2 MV Deceleration Time 205.4 ms MV E' Velocity 8.5 cm/s Mitral E to MV E' Ratio 10.5 TR Peak Velocity 204.4 cm/s TR Peak Gradient 16.7 mmHg Right Ventricular Systolic Press 26.7 mmHg FINDINGS Left Ventricle Left ventricular ejection fraction is estimated at 50-55 %. Left ventricular cavity size normal. Left ventricular wall thickness normal. No obvious regional wall motion abnormalities. Right Ventricle Normal right ventricular size. Right ventricular systolic pressure within normal limits. Right Atrium Normal right atrial size. No right atrial thrombus or mass seen. Left Atrium Normal left atrial size. No left atrial thrombus or mass present. Mitral Valve Structurally normal mitral valve. Mitral annular calcification. Trace mitral regurgitation. Aortic Valve Trileaflet aortic valve. No aortic stenosis. Trace aortic regurgitation. Tricuspid Valve Structurally normal tricuspid valve. Mild tricuspid regurgitation. Pulmonic Valve Structurally normal pulmonic valve. Mild pulmonic regurgitation. Pericardium No pericardial effusion. Aorta Normal size aortic root and proximal ascending aorta. CONCLUSIONS Normal LV function Previewed by: Dr. Oli Camarena MD (Electronically Signed) Final Date: 16 January 2025 07:44
== END | disposition home or self-care (01) ==
LOC: RADUSWWP 12:38
PROVIDERS: ATTEND Internal Medicine
DX: I25.10 Atherosclerotic heart disease of native coronary artery without angina pectoris (principal); I65.23 Occlusion and stenosis of bilateral carotid arteries; I37.1 Nonrheumatic pulmonary valve insufficiency; I07.1 Rheumatic tricuspid insufficiency
CPT/HCPCS: 93306; 93880